=== PATIENT | female | born 1960 | race Caucasian/White ===

== ENCOUNTER 2016-07-05 06:37 | Day surgery (SDC) | payer OTHER ==
--- NOTE | ~2016-07-05 | EGD ---
EGD REPORT [facility] [address] [id number] NAME: ERIKA KYLE : 60 STATUS : REG [facility]#: [id number] AGE: 56 ADM/REG DATE : 07/05/16 MR#: [id number] REPORT SERV DATE: 07/05/16 DICTATED BY: DATE: REPORT STATUS : Draft TRANSCRIBED BY: [employer] DATE: 07/05/16 [facility] Patient Name: Erika Kyle Date of : 1960 Attending MD: CRISTINA WALDEN MD Procedure Date No Time: 07/05/2016 Procedure: Colonoscopy Indications: Hematochezia Referring MD: MAGED BARRAGAN MD Medicines: Monitored Anesthesia Care Complications: No immediate complications. Procedure: Pre-Anesthesia Assessment: - ASA Grade Assessment: III - A patient with severe systemic disease. After I obtained informed consent, the scope was passed under direct vision. Throughout the procedure, the patient's blood pressure, pulse, and oxygen saturations were monitored continuously. The PCF [id number] was introduced through the anus and advanced to the cecum, identified by appendiceal orifice and ileocecal valve. The colonoscopy was performed without difficulty. The patient tolerated the procedure well. The quality of the bowel preparation was excellent. Findings: The perianal exam was abnormal. Findings include a skin tag. A sessile polyp was found in the recto-sigmoid colon. The polyp was small in size. The polyp was removed with a cold snare. Resection and retrieval were complete. No other significant abnormalities were identified in a careful examination of the remainder of the colon. There is no endoscopic evidence of diverticula, inflammation, mass, ulcerations or angioectasia in the entire colon. No additional abnormalities were found on retroflexion. Impression: - Perianal skin tag found on perianal exam. - One small polyp at the recto-sigmoid colon. Resected and retrieved. Recommendation: - Patient has a contact number available for emergencies. The signs and symptoms of potential delayed complications were discussed with the patient. Return to normal activities tomorrow. Written discharge instructions were provided to the patient. - Discharge patient to home. EGD REPORT [address] [place]. [address] NAME: ERIKA KYLE : 60 STATUS : REG [facility] [place] PAT#: [id number] AGE: 56 ADM/REG DATE : 07/05/16 MR#: [id number] REPORT SERV DATE: 07/05/16 DICTATED BY: DATE: REPORT STATUS : Draft TRANSCRIBED BY: [employer] DATE: 07/05/16 - High fiber diet. - Continue present medications. - Await pathology results. - Repeat colonoscopy in 5 years for surveillance based on pathology results. Procedure Code(s): --- Professional --- 46072, Colonoscopy, flexible, proximal to splenic flexure; with removal of tumor(s), polyp(s), or other lesion(s) by snare technique Diagnosis Code(s): --- Professional --- K64.4, Residual hemorrhoidal skin tags D12.7, Benign neoplasm of rectosigmoid junction K92.1, Melena CPT copyright 2013 [employer]. All rights reserved. The codes documented in this report are preliminary and upon medical record coder review may be revised to meet current compliance requirements. CRISTINA WALDEN MD 07/05/2016 8:33 AM This report has been signed electronically. Number of Addenda: 0 Note Initiated On: 07/05/2016 8:03 AM Scope Withdrawal Time 0 hours 10 minutes 16 seconds [id number] [id number]
[~2016-07-05 06:37] MED LIST: ASAB PO; COREG25 PO; COZAAR100 MG PO; GLUCPH PO; INVOKANA300 MG PO; NASACORTAQ NAS; VICTOZA; VICTOZA18 MG/3 ML SC; ZANTAC 75 PO; ZOCOR40 PO; ZOL50 PO
== END 2016-07-05 23:59 | disposition home health service (06) ==
LOC: DMU 06:37
PROVIDERS: Internal Medicine Gastroenterology
PROC: 0DBN8ZX Excision of Sigmoid Colon, Via Natural or Artificial Opening Endoscopic, Diagnostic (ICD-10-PCS; principal; 2016-07-05 08:00)
DX: D12.7 Benign neoplasm of rectosigmoid junction (principal); K64.4 Residual hemorrhoidal skin tags; K21.9 Gastro-esophageal reflux disease without esophagitis; E66.01 Morbid (severe) obesity due to excess calories; I10 Essential (primary) hypertension; G43.909 Migraine, unspecified, not intractable, without status migrainosus; E11.9 Type 2 diabetes mellitus without complications; F41.9 Anxiety disorder, unspecified; Z86.718 Personal history of other venous thrombosis and embolism; Z90.49 Acquired absence of other specified parts of digestive tract
CPT/HCPCS: 82962; 84703; 88305